=== PATIENT | female | born 1995 | race Caucasian/White ===

== ENCOUNTER 2019-11-02 09:03 | Observation (INO) | payer OTHER ==
[~2019-11-02] VITALS: Ht 180.3 cm; Wt 152.6 kg
[~2019-11-02 09:03] MED LIST: IBUP600 PO; Percocet 5-3251 EACH PO
[2019-11-02] MEDS ORDERED: IRON18 MG (09:25)
[2019-11-02 09:50] LABS: BASOPHILS ABSOLUTE AUTO 0.01 K/mm3 (0.00-0.23); BASOPHILS PERCENT AUTO 0 % (0-2); EOSINOPHILS ABSOLUTE AUTO 0.13 K/mm3 (0.00-0.68); EOSINOPHILS PERCENT AUTO 2 % (0-6); Hematocrit 20.9 % (33.0-51.0); IMMATURE GRAN ABSOLUTE AUTO 0.05 K/mm3 (0.00-0.10); IMMATURE GRAN PERCENT AUTO 1 % (0-1); LYMPHOCYTES ABSOLUTE AUTO 1.68 K/mm3 (0.84-5.20); LYMPHOCYTES PERCENT AUTO 26 % (21-46); MONOCYTES ABSOLUTE AUTO 0.45 K/mm3 (0.16-1.47); MONOCYTES PERCENT AUTO 7 % (4-13); Mean Corpuscular HGB 13.8 pg (26.0-34.0); Mean Corpuscular HGB Conc 22.5 g/dL (31.5-36.5); Mean Corpuscular Volume 61 fL (80-100); NEUTROPHILS ABSOLUTE AUTO 4.17 K/mm3 (1.96-9.15); NEUTROPHILS PERCENT AUTO 64 % (41-73); NRBC ABSOLUTE 0.05 K/mm3 (0.00-0.02); NRBC Auto 0.8 /100 WBC (0.0-0.2); Platelet Count 259 K/mm3 (150-400); RDW Coefficient Variation 24.5 % (11.7-14.2); Red Blood Cell Count 3.41 M/mm3 (3.80-5.20); White Blood Cell Count 6.49 K/mm3 (4.00-11.30)
[2019-11-02 10:09] LABS: Alanine Aminotransfer (ALT/SGP 14 U/L (12-78); Albumin, Blood 3.6 g/dL (3.4-5.0); Albumin/Globulin Ratio 0.9 (0.8-1.8); Alk Phos 65 U/L (50-136); Anion Gap 4 mmol/L (6-16); Aspartate Aminotrans (AST/SGOT 8 U/L (12-37); Bilirubin, Total 0.7 mg/dL (0.1-1.0); Blood Urea Nitrogen 12 mg/dL (8-24); Bun/Creatinine Ratio 17.3 (12.0-20.0); CO2, Blood 27 mmol/L (21-32); Calcium, Blood 8.7 mg/dL (8.5-10.1); Chloride, Blood 110 mmol/L (98-108); Creatinine, Blood 0.69 mg/dL (0.40-1.00); Globulin, Blood 3.8 g/dL (2.2-4.0); Glomerular Filtration Rate >60 (60-); Glucose, Blood 99 mg/dL (70-99); Potassium, Blood 3.9 mmol/L (3.5-5.5); Sodium, Blood 141 mmol/L (136-145); Total Protein, Blood 7.4 g/dL (6.4-8.2)
[2019-11-02 10:16] LABS: Hemoglobin 4.7 g/dL (11.5-16.0)
--- NOTE | 2019-11-02 12:30 | NUR ---
Assumed Care Received report @ 12:10 from Humphrey RN-ED, patient arrived @ 12:25. Denies SOB and dizziness. Does not appear to be dyspneic on exertion or diaphoretic. Independent with ambulation, asymptomatic. Denies pain. 2nd PRBC infusing and mom at bedside upon arrival. A/Ox4. Able to answer questions and use call light appropriately. VSS. No other needs, will continue to monitor.
[2019-11-02] MEDS ORDERED: VITAMIN D33000 UNIT PO (14:30)
--- NOTE | 2019-11-02 19:26 | NUR ---
Shift Summary Patient received a total of 4 PRBC (1 in ER and 3 on MED). Tolerated well, lung sounds are clear. ER blood administration record for 2nd PRBC in chart. Carlton informed of 4 units PRBC infused, verbal order for stat H&H. Independent. Denies SOB, dizziness, diaphoresis. Hand off report to receiving night LISA Galicia.
[2019-11-02 19:47] LABS: Hemoglobin 7.3 g/dL (11.5-16.0)
[2019-11-03 05:37] LABS: BASOPHILS ABSOLUTE AUTO 0.02 K/mm3 (0.00-0.23); BASOPHILS PERCENT AUTO 0 % (0-2); EOSINOPHILS ABSOLUTE AUTO 0.18 K/mm3 (0.00-0.68); EOSINOPHILS PERCENT AUTO 3 % (0-6); Hematocrit 25.4 % (33.0-51.0); Hemoglobin 6.8 g/dL (11.5-16.0); IMMATURE GRAN ABSOLUTE AUTO 0.06 K/mm3 (0.00-0.10); IMMATURE GRAN PERCENT AUTO 1 % (0-1); LYMPHOCYTES ABSOLUTE AUTO 2.23 K/mm3 (0.84-5.20); LYMPHOCYTES PERCENT AUTO 31 % (21-46); MONOCYTES ABSOLUTE AUTO 0.45 K/mm3 (0.16-1.47); MONOCYTES PERCENT AUTO 6 % (4-13); Mean Corpuscular HGB Conc 26.8 g/dL (31.5-36.5); NEUTROPHILS ABSOLUTE AUTO 4.25 K/mm3 (1.96-9.15); NEUTROPHILS PERCENT AUTO 59 % (41-73); NRBC ABSOLUTE 0.06 K/mm3 (0.00-0.02); NRBC Auto 0.8 /100 WBC (0.0-0.2); Platelet Count 244 K/mm3 (150-400); RDW Coefficient Variation 29.6 % (11.7-14.2); RDW Standard Deviation 69.7 fL (35.1-46.3); Red Blood Cell Count 3.78 M/mm3 (3.80-5.20); White Blood Cell Count 7.19 K/mm3 (4.00-11.30)
[2019-11-03 05:42] LABS: Mean Corpuscular Volume 67 fL (80-100)
[2019-11-03 05:50] LABS: Anion Gap 4 mmol/L (6-16); Blood Urea Nitrogen 12 mg/dL (8-24); Bun/Creatinine Ratio 16.4 (12.0-20.0); CO2, Blood 27 mmol/L (21-32); Calcium, Blood 8.3 mg/dL (8.5-10.1); Chloride, Blood 111 mmol/L (98-108); Creatinine, Blood 0.73 mg/dL (0.40-1.00); Glomerular Filtration Rate >60 (60-); Glucose, Blood 86 mg/dL (70-99); Potassium, Blood 3.9 mmol/L (3.5-5.5); Sodium, Blood 142 mmol/L (136-145)
--- NOTE | 2019-11-03 06:22 | NUR ---
7521 DR HAJI CALLED AND INFORMED OF PT HGB (6.8). PROVIDER ORDERED H/H TO BE DRAWN AGAIN AT NOON.
--- NOTE | 2019-11-03 18:08 | NUR ---
SHIFT SUMMARY. A&OX4, INDEPENDENT IN ROOM, PLEASANT AND COOPERATIVE WITH CARE. PT DENIES PAIN, SOB, N/V. GOOD MEAL INTAKE. PT DENIES DARK STOOLS OR NAUSEA. PT DENIES MENSES. NO OBVIOUS S/SX OF BLEEDING. VSS. PT RECIEVING SECOND UNIT OR PRBC'S AT THIS TIME. PT IS TOLERATING WELL. IV LASIX GIVEN INBETWEEN UNITS PER ORDERS. FAMILY AT BEDSIDE MOST OF SHIFT. NO NEW CHANGES OR CONCERNS.
[2019-11-03 20:39] LABS: Hematocrit 30.7 % (33.0-51.0); Hemoglobin 8.4 g/dL (11.5-16.0); Mean Corpuscular HGB 19.1 pg (26.0-34.0); Mean Corpuscular HGB Conc 27.4 g/dL (31.5-36.5); Mean Corpuscular Volume 70 fL (80-100); NRBC ABSOLUTE 0.09 K/mm3 (0.00-0.02); NRBC Auto 0.8 /100 WBC (0.0-0.2); Platelet Count 265 K/mm3 (150-400); RDW Coefficient Variation 30.5 % (11.7-14.2); Red Blood Cell Count 4.39 M/mm3 (3.80-5.20); White Blood Cell Count 11.45 K/mm3 (4.00-11.30)
--- NOTE | 2019-11-04 04:41 | NUR ---
SUMMARY NO ISSUES NOTED. PT HAS BEEN UP LATE ON HER PHONE. PT IS EAGER TO GO HOME. PT CURRENTLY SLEEPING AND BREATHING EASY. CALL LIGHT IN REACH.
[2019-11-04 05:27] LABS: BASOPHILS ABSOLUTE AUTO 0.02 K/mm3 (0.00-0.23); BASOPHILS PERCENT AUTO 0 % (0-2); EOSINOPHILS ABSOLUTE AUTO 0.26 K/mm3 (0.00-0.68); EOSINOPHILS PERCENT AUTO 3 % (0-6); Hematocrit 30.9 % (33.0-51.0); Hemoglobin 8.5 g/dL (11.5-16.0); IMMATURE GRAN ABSOLUTE AUTO 0.06 K/mm3 (0.00-0.10); IMMATURE GRAN PERCENT AUTO 1 % (0-1); LYMPHOCYTES ABSOLUTE AUTO 2.57 K/mm3 (0.84-5.20); LYMPHOCYTES PERCENT AUTO 27 % (21-46); MONOCYTES ABSOLUTE AUTO 0.58 K/mm3 (0.16-1.47); MONOCYTES PERCENT AUTO 6 % (4-13); Mean Corpuscular HGB 19.2 pg (26.0-34.0); Mean Corpuscular HGB Conc 27.5 g/dL (31.5-36.5); Mean Corpuscular Volume 70 fL (80-100); NEUTROPHILS ABSOLUTE AUTO 5.91 K/mm3 (1.96-9.15); NEUTROPHILS PERCENT AUTO 63 % (41-73); NRBC ABSOLUTE 0.04 K/mm3 (0.00-0.02); NRBC Auto 0.4 /100 WBC (0.0-0.2); Platelet Count 262 K/mm3 (150-400); RDW Coefficient Variation 30.7 % (11.7-14.2); RDW Standard Deviation 74.4 fL (35.1-46.3); Red Blood Cell Count 4.43 M/mm3 (3.80-5.20)
[2019-11-04] MEDS ORDERED: FERSU300 PO (11:00)
[2019-11-04] MEDS ORDERED: FAMO20 PO (11:01)
[2019-11-04] MEDS ORDERED: HYDR10 PO (11:03)
[2019-11-04] MEDS ORDERED: ASCO500 PO (11:04)
--- NOTE | 2019-11-04 12:11 | NUR ---
1135 PT DISCHARGED HOME VIA PERSONAL VEHICLE ACCOMPANIED AND DRIVEN BY MOTHER. PT REFUSED ESCORT TO ENTRANCE AND SELF AMBULATED WITH MOTHER. IV REMOVED. D/C PAPERWORK REVIEWED WITH PT AND COPY PROVIDED. NEW RX FAXED TO [facility] PER PT REQUEST. NO S/SX OF BLEEDING THIS SHIFT. NO NEW CHANGES OR CONCERNS.
== END 2019-11-04 11:36 | disposition home or self-care (01) ==
LOC: ER 09:03 → MEDS 09:04 → ENPENDDIS 11-04 10:00 → MEDS 11-04 11:36
PROVIDERS: Emergency Medicine; Family Medicine; Nurse Practitioner Acute Care; ADMIT Internal Medicine
DX: D50.9 Iron deficiency anemia, unspecified (principal); I10 Essential (primary) hypertension; E66.01 Morbid (severe) obesity due to excess calories; N92.1 Excessive and frequent menstruation with irregular cycle; Z68.41 Body mass index [BMI] 40.0-44.9, adult; Z79.899 Other long term (current) drug therapy
CPT/HCPCS: 36415; 36430; 80048; 80053; 82947; 85014; 85018; 85025; 85027; 86850; 86900; 86901; 86923; 96374; 99284-25; A9270; G0378; J1940; J7030; P9016

== ENCOUNTER 2020-02-17 00:09 | Day surgery (SDC) | payer OTHER | END 2020-02-17 10:09 | disposition home or self-care (01) | LOC: ATC 00:09 | DX: D50.9 Iron deficiency anemia, unspecified (principal); N93.8 Other specified abnormal uterine and vaginal bleeding; E28.2 Polycystic ovarian syndrome ==

== ENCOUNTER 2020-02-24 01:00 | Day surgery (SDC) | payer OTHER ==
[~2020-02-24 01:00] MED LIST changes: +ASCO500 PO; +ETONOGESTREL-E1 EAC1 VAG; +FAMO20 PO; +FERSU300 PO; +HYDR10 PO; +IRON18 MG; +METFORMIN HCL500 M3 PO; +VITAMIN D33000 UNIT PO
== END 2020-02-24 09:05 | disposition home or self-care (01) ==
LOC: ATC 01:00
DX: D50.9 Iron deficiency anemia, unspecified (principal); N93.8 Other specified abnormal uterine and vaginal bleeding; E28.2 Polycystic ovarian syndrome
CPT/HCPCS: 96365; J2916

== ENCOUNTER 2020-03-02 09:39 | Day surgery (SDC) | payer OTHER | END 2020-03-02 11:11 | disposition home or self-care (01) | LOC: ATC 09:39 | DX: D50.9 Iron deficiency anemia, unspecified (principal); N93.8 Other specified abnormal uterine and vaginal bleeding; E28.2 Polycystic ovarian syndrome | CPT/HCPCS: 96365; J2916 ==

== ENCOUNTER 2020-06-25 15:17 | Inpatient (IN) | payer OTHER, SELFPAY ==
[~2020-06-25] VITALS: Ht 180.3 cm; Wt 177.4 kg
--- NOTE | 2020-06-28 07:05 | NUR ---
History, Chart, Medications and Allergies reviewed before start of procedure. Lungs clear T/O to Auscultation. Patient confirms NPO status and agrees with scheduled surgery. Patient reports completing Chlorhexadine shower X2 prior to admission to hospital.
[2020-06-28 10:40] LABS: BASOPHILS ABSOLUTE AUTO 0.02 K/mm3 (0.00-0.23); BASOPHILS PERCENT AUTO 0 % (0-2); EOSINOPHILS ABSOLUTE AUTO 0.06 K/mm3 (0.00-0.68); EOSINOPHILS PERCENT AUTO 1 % (0-6); Hemoglobin 9.7 g/dL (11.5-16.0); IMMATURE GRAN ABSOLUTE AUTO 0.06 K/mm3 (0.00-0.10); IMMATURE GRAN PERCENT AUTO 1 % (0-1); LYMPHOCYTES ABSOLUTE AUTO 1.04 K/mm3 (0.84-5.20); LYMPHOCYTES PERCENT AUTO 9 % (21-46); MONOCYTES ABSOLUTE AUTO 0.15 K/mm3 (0.16-1.47); MONOCYTES PERCENT AUTO 1 % (4-13); Mean Corpuscular HGB 19.6 pg (26.0-34.0); Mean Corpuscular HGB Conc 28.5 g/dL (31.5-36.5); Mean Corpuscular Volume 69 fL (80-100); NEUTROPHILS ABSOLUTE AUTO 10.76 K/mm3 (1.96-9.15); NEUTROPHILS PERCENT AUTO 89 % (41-73); Platelet Count 278 K/mm3 (150-400); RDW Coefficient Variation 18.1 % (11.7-14.2); RDW Standard Deviation 43.2 fL (35.1-46.3); Red Blood Cell Count 4.94 M/mm3 (3.80-5.20); White Blood Cell Count 12.09 K/mm3 (4.00-11.30)
[2020-06-28 10:41] LABS: Mean Platelet Volume 11.3 fL (9.1-12.4)
[2020-06-29 05:31] LABS: BASOPHILS ABSOLUTE AUTO 0.02 K/mm3 (0.00-0.23); BASOPHILS PERCENT AUTO 0 % (0-2); EOSINOPHILS ABSOLUTE AUTO 0.01 K/mm3 (0.00-0.68); EOSINOPHILS PERCENT AUTO 0 % (0-6); Hematocrit 31.7 % (33.0-51.0); Hemoglobin 9.1 g/dL (11.5-16.0); IMMATURE GRAN ABSOLUTE AUTO 0.05 K/mm3 (0.00-0.10); IMMATURE GRAN PERCENT AUTO 0 % (0-1); LYMPHOCYTES ABSOLUTE AUTO 2.06 K/mm3 (0.84-5.20); LYMPHOCYTES PERCENT AUTO 17 % (21-46); MONOCYTES ABSOLUTE AUTO 0.77 K/mm3 (0.16-1.47); MONOCYTES PERCENT AUTO 6 % (4-13); Mean Corpuscular HGB 19.9 pg (26.0-34.0); Mean Corpuscular HGB Conc 28.7 g/dL (31.5-36.5); Mean Corpuscular Volume 69 fL (80-100); Mean Platelet Volume 10.8 fL (9.1-12.4); NEUTROPHILS ABSOLUTE AUTO 9.32 K/mm3 (1.96-9.15); NEUTROPHILS PERCENT AUTO 76 % (41-73); Platelet Count 326 K/mm3 (150-400); RDW Coefficient Variation 18.5 % (11.7-14.2); RDW Standard Deviation 45.3 fL (35.1-46.3); Red Blood Cell Count 4.57 M/mm3 (3.80-5.20); White Blood Cell Count 12.23 K/mm3 (4.00-11.30)
--- NOTE | 2020-06-29 05:57 | NUR ---
SHIFT SUMMARY LYING IN SEMI FOWLERS WITH EYES CLOSED, HAS RESTED WELL ALL SHIFT. AAO X3, MOON, FOLLOWS ALL COMMANDS. LAP SITES X3 TO ABDOMEN ARE C/D/I. PAIN MANAGED WITH PERCOCET PER MD ORDERS. LEFT HAND SL PIV IS PATENT, FLUSHING WITH EASE BRIGHT CATH REMOVED WITH TIP INTACT, TOLERATED WELL. NO SIGNIFICANT CHANGES NOTED THIS SHIFT. DENIES PAIN, DISCOMFORTR, OR FURTHER NEEDS AT THIS TIME. SAFETY MEASURES IN PLACE. WILL CONTINUE TO MONITOR AND GIVE HAND OFF TO ONCOMING SHIFT USING SBAR DURING BEDSIDE REPORT.
--- NOTE | 2020-06-29 18:03 | NUR ---
SHIFT SUMMARY PT RESTING QUIETLY AT START OF SHIFT. POST-OP DAY 1 WITH 3 LAP SITES OPEN TO AIR. PER SHIFT REPORT, PT HAD ONLY BEEN MEDICATED ONCE AFTER SURGERY. PT CONTINUED TO DENY NEEDING PAIN MEDICATION THRU OUT THE DAY. PT UP TO BTHRM INDEPENDENTLY, VOIDING WELL. PT EATING AND DRINKING WITH NO C/O. PT WAITING FOR DR CELESTE TO COME IN AND D/C TO HOME. PT WAITED ALL DAY. DR CELESTE'S ANS NOTIFIED. DR BARBER BUNCH BREAKER. INSTRUCTED BY DR BARBER TO CALL DR CELESTE'S CELL FOR D/C ORDERS. ATTEMPTED FOR 1 HR WITH NO ANS AND UNABLE TO LEAVE MESSAGE FOR CALL BACK. DR BARBER NOTIFIED AGAIN AND RETURNED CALL. D/C ORDERS PLACED. IV SITE TO [facility] D/C'D WNL'S. D/C INSTRUCTIONS DISCUSSED WITH PT; VERBALIZED UNDERSTANDING. PT REPORTED THAT SHE ALREADY HAD A F/U APPOINTMENT SCHEDULED. W/C OBTAINED AND PT ASSISTED OUT TO CAR WITH BESIDE HER.
== END 2020-06-29 17:00 | disposition home or self-care (01) | DRG 742 ==
LOC: SURS 06-28 06:31 → PRE IP 06-28 07:30 → SURS 06-28 10:30
PROVIDERS: ADMIT Obstetrics & Gynecology
PROC: 0UT60ZZ Resection of Left Fallopian Tube, Open Approach (ICD-10-PCS; principal; 2020-06-28 07:30)
PROC: 0UT10ZZ Resection of Left Ovary, Open Approach (ICD-10-PCS; 2020-06-28 07:30)
DX: N83.202 Unspecified ovarian cyst, left side (principal); Z68.43 Body mass index [BMI] 50.0-59.9, adult; I10 Essential (primary) hypertension; N92.1 Excessive and frequent menstruation with irregular cycle; D64.9 Anemia, unspecified; E78.5 Hyperlipidemia, unspecified; E66.01 Morbid (severe) obesity due to excess calories
CPT/HCPCS: 36415; 85025; 88108; 88305; A9270; J1100; J1885; J2250; J2370; J2405; J2704; J3010; J7120

== ENCOUNTER 2020-09-07 00:24 | Day surgery (SDC) | payer OTHER ==
[2020-09-07] MEDS ORDERED: [UNRECOGNIZED DRUG - REMARK] PO (14:14)
== END 2020-09-07 15:23 | disposition home or self-care (01) ==
LOC: ATC 00:24
DX: D50.9 Iron deficiency anemia, unspecified (principal); N93.8 Other specified abnormal uterine and vaginal bleeding; E28.2 Polycystic ovarian syndrome
CPT/HCPCS: J2916

== ENCOUNTER 2020-09-21 01:51 | Day surgery (SDC) | payer OTHER ==
[~2020-09-21 01:51] MED LIST changes: +[UNRECOGNIZED DRUG - REMARK] PO
--- NOTE | 2020-09-21 14:19 | NUR ---
IV START: REGGIE GONZALEZ ATTEMPTED 2X IV
== END 2020-09-21 15:17 | disposition home or self-care (01) ==
LOC: ATC 01:51
DX: D50.9 Iron deficiency anemia, unspecified (principal); N93.8 Other specified abnormal uterine and vaginal bleeding; E28.2 Polycystic ovarian syndrome
CPT/HCPCS: 96365; J2916

== ENCOUNTER 2021-03-29 04:11 | Day surgery (SDC) | payer OTHER | END 2021-03-29 14:50 | disposition home or self-care (01) | LOC: ATC 04:11 | DX: D50.9 Iron deficiency anemia, unspecified (principal) | CPT/HCPCS: 96365; J2916 ==

== ENCOUNTER 2021-04-05 03:04 | Day surgery (SDC) | payer OTHER | END 2021-04-05 14:47 | disposition home or self-care (01) | LOC: ATC 03:04 | DX: D50.9 Iron deficiency anemia, unspecified (principal) | CPT/HCPCS: J2916 ==

== ENCOUNTER 2021-07-17 01:36 | Day surgery (SDC) | payer OTHER | END 2021-07-17 15:26 | disposition home or self-care (01) | LOC: ATC 01:36 | DX: D50.9 Iron deficiency anemia, unspecified (principal); E28.2 Polycystic ovarian syndrome; N93.8 Other specified abnormal uterine and vaginal bleeding | CPT/HCPCS: J2916 ==

== ENCOUNTER 2021-07-31 01:17 | Day surgery (SDC) | payer OTHER | END 2021-07-31 15:22 | disposition home or self-care (01) | LOC: ATC 01:17 | DX: D50.9 Iron deficiency anemia, unspecified (principal); N93.8 Other specified abnormal uterine and vaginal bleeding; E28.2 Polycystic ovarian syndrome | CPT/HCPCS: 96365; J2916 ==

== ENCOUNTER 2021-08-13 21:05 | Emergency (ER) | payer OTHER ==
[~2021-08-13] VITALS: Ht 180.3 cm; Wt 145.2 kg
[2021-08-13] MEDS ORDERED: AMOCLA875 PO (22:57)
== END 2021-08-13 23:14 | disposition home or self-care (01) ==
LOC: ER 21:05
DX: S62.634A Displaced fracture of distal phalanx of right ring finger, initial encounter for closed fracture (principal); S51.851A Open bite of right forearm, initial encounter; Z23 Encounter for immunization; W54.0XXA Bitten by dog, initial encounter
CPT/HCPCS: 12001; 29130; 73110; 73130; 90471; 90714; 99283-25; A9270

== ENCOUNTER 2021-10-30 03:48 | Day surgery (SDC) | payer OTHER ==
[~2021-10-30 03:48] MED LIST changes: +AMOCLA875 PO
== END 2021-10-30 16:06 | disposition home or self-care (01) ==
LOC: ATC 03:48
DX: D50.9 Iron deficiency anemia, unspecified (principal); N93.8 Other specified abnormal uterine and vaginal bleeding; E28.2 Polycystic ovarian syndrome
CPT/HCPCS: 96365; J2916

== ENCOUNTER 2021-11-13 01:16 | Day surgery (SDC) | payer OTHER | END 2021-11-13 16:15 | disposition home or self-care (01) | LOC: ATC 01:16 | DX: D50.9 Iron deficiency anemia, unspecified (principal) | CPT/HCPCS: 96365; J2916 ==

== ENCOUNTER → 2021-11-13 | Outpatient (CLI) | payer OTHER | END | disposition home or self-care (01) | LOC: LAB SHORT 09:25 → LAB 09:25 | PROVIDERS: Obstetrics & Gynecology | DX: Z12.4 Encounter for screening for malignant neoplasm of cervix (principal) | CPT/HCPCS: G0123 ==

== ENCOUNTER 2022-11-21 01:46 | Day surgery (SDC) | payer OTHER ==
[~2022-11-21 01:46] MED LIST changes: +IRON18 MG PO
[2022-11-21 14:20] VITALS: BP 153/93
== END 2022-11-21 22:43 | disposition home or self-care (01) ==
LOC: ATC 01:46
DX: D50.9 Iron deficiency anemia, unspecified (principal); N93.8 Other specified abnormal uterine and vaginal bleeding; E28.2 Polycystic ovarian syndrome
CPT/HCPCS: 96365; J2916

== ENCOUNTER 2023-02-19 14:28 | Day surgery (SDC) | payer OTHER ==
[2023-02-19 14:41] VITALS: BP 152/94
== END 2023-02-19 16:35 | disposition home or self-care (01) ==
LOC: ATC 14:28
DX: D50.9 Iron deficiency anemia, unspecified (principal); N93.8 Other specified abnormal uterine and vaginal bleeding; E28.2 Polycystic ovarian syndrome
CPT/HCPCS: 96365; J2916

== ENCOUNTER 2023-02-26 01:35 | Day surgery (SDC) | payer OTHER ==
[2023-02-26 14:20] VITALS: BP 129/86
== END 2023-02-26 15:25 | disposition home or self-care (01) ==
LOC: ATC 01:35
DX: D50.9 Iron deficiency anemia, unspecified (principal); N93.8 Other specified abnormal uterine and vaginal bleeding; E28.2 Polycystic ovarian syndrome
CPT/HCPCS: 96365; J2916

== ENCOUNTER 2023-06-15 02:42 | Day surgery (SDC) | payer OTHER ==
[2023-06-15 14:25] VITALS: BP 156/80
== END 2023-06-15 15:17 | disposition home or self-care (01) ==
LOC: ATC 02:42
DX: D50.9 Iron deficiency anemia, unspecified (principal)
CPT/HCPCS: 96365; J2916

== ENCOUNTER 2023-06-22 01:44 | Day surgery (SDC) | payer OTHER ==
[2023-06-22] MEDS ORDERED: Sod Ferric Gluc Complx/Sucrose 125 MG in NS 100 ML IV SCH (06:00)
[2023-06-22 14:34] VITALS: BP 160/81
== END 2023-06-22 15:31 | disposition home or self-care (01) ==
LOC: ATC 01:44
DX: D50.9 Iron deficiency anemia, unspecified (principal)
CPT/HCPCS: 96365; J2916

== ENCOUNTER 2023-06-29 00:27 | Day surgery (SDC) | payer OTHER ==
[2023-06-29] MEDS ORDERED: Sod Ferric Gluc Complx/Sucrose 125 MG in NS 100 ML IV SCH (07:00)
[2023-06-29 15:09] VITALS: BP 150/100
== END 2023-06-29 16:20 | disposition home or self-care (01) ==
LOC: ATC 00:27
DX: D50.9 Iron deficiency anemia, unspecified (principal)
CPT/HCPCS: 96365; J2916

== ENCOUNTER 2023-10-29 02:51 | Day surgery (SDC) | payer OTHER ==
[~2023-10-29 02:51] MED LIST changes: +Sod Ferric Gluc Complx/Sucrose 125 MG in NS 100 ML IV SCH
[2023-10-29 15:10] VITALS: BP 170/90
[2023-10-29 16:16] VITALS: BP 163/91
== END 2023-10-29 16:18 | disposition home or self-care (01) ==
LOC: ATC 02:51
DX: D50.9 Iron deficiency anemia, unspecified (principal); N93.8 Other specified abnormal uterine and vaginal bleeding; E28.2 Polycystic ovarian syndrome
CPT/HCPCS: 96365; J2916

== ENCOUNTER 2023-11-14 07:06 | Day surgery (SDC) | payer OTHER ==
[2023-11-14 09:10] VITALS: BP 132/100
== END 2023-11-14 10:15 | disposition home or self-care (01) ==
LOC: ATC 07:06
DX: D50.9 Iron deficiency anemia, unspecified (principal); N93.8 Other specified abnormal uterine and vaginal bleeding; E28.2 Polycystic ovarian syndrome
CPT/HCPCS: 96365; J2916

== ENCOUNTER 2024-02-26 03:00 | Day surgery (SDC) | payer OTHER ==
[2024-02-25 13:47] LABS: BASOPHILS ABSOLUTE AUTO 0.01 K/mm3 (0.00-0.23); BASOPHILS PERCENT AUTO 0 % (0-2); EOSINOPHILS ABSOLUTE AUTO 0.11 K/mm3 (0.00-0.68); EOSINOPHILS PERCENT AUTO 1 % (0-6); IMMATURE GRAN ABSOLUTE AUTO 0.27 K/mm3 (0.00-0.10); IMMATURE GRAN PERCENT AUTO 3 % (0-1); LYMPHOCYTES ABSOLUTE AUTO 2.04 K/mm3 (0.84-5.20); LYMPHOCYTES PERCENT AUTO 25 % (21-46); MONOCYTES ABSOLUTE AUTO 0.41 K/mm3 (0.16-1.47); MONOCYTES PERCENT AUTO 5 % (4-13); Mean Corpuscular HGB 15.7 pg (26.0-34.0); Mean Corpuscular HGB Conc 25.3 g/dL (31.5-36.5); Mean Corpuscular Volume 62 fL (80-100); NEUTROPHILS ABSOLUTE AUTO 5.31 K/mm3 (1.96-9.15); NEUTROPHILS PERCENT AUTO 65 % (41-73); NRBC ABSOLUTE 0.19 K/mm3 (0.00-0.02); NRBC Auto 2.3 /100 WBC (0.0-0.2); Platelet Count 230 K/mm3 (150-400); RDW Coefficient Variation 24.2 % (11.7-14.2); Red Blood Cell Count 2.49 M/mm3 (3.80-5.20); White Blood Cell Count 8.15 K/mm3 (4.00-11.30)
[2024-02-25 14:04] LABS: Hematocrit 15.4 % (33.0-51.0); Hemoglobin 3.9 g/dL (11.5-16.0)
[~2024-02-26 03:00] MED LIST changes: -Sod Ferric Gluc Complx/Sucrose 125 MG in NS 100 ML IV SCH
[2024-02-26] MEDS ORDERED: NS 250 ML IV SCH (06:50)
[2024-02-26 07:40] VITALS: BP 156/64
[2024-02-26 08:06] VITALS: BP 147/81
[2024-02-26 09:18] VITALS: BP 143/82
[2024-02-26 09:37] VITALS: BP 129/72
[2024-02-26 10:38] VITALS: BP 138/77
[2024-02-26 11:03] VITALS: BP 138/77
== END 2024-02-26 11:03 | disposition home or self-care (01) ==
LOC: ATC 03:00
PROVIDERS: Legal Medicine
DX: D50.9 Iron deficiency anemia, unspecified (principal); N93.8 Other specified abnormal uterine and vaginal bleeding; E28.2 Polycystic ovarian syndrome
CPT/HCPCS: 36415; 36430; 85025; 86850; 86900; 86901; 86923; J7050; P9016

== ENCOUNTER 2024-03-04 00:22 | Day surgery (SDC) | payer OTHER ==
[2024-03-04] MEDS ORDERED: Sod Ferric Gluc Complx/Sucrose 125 MG in NS 100 ML IV SCH (01:00)
[2024-03-04 15:15] VITALS: BP 165/82
== END 2024-03-04 16:22 | disposition home or self-care (01) ==
LOC: ATC 00:22
DX: D50.9 Iron deficiency anemia, unspecified (principal); N93.8 Other specified abnormal uterine and vaginal bleeding; E28.2 Polycystic ovarian syndrome
CPT/HCPCS: 96365; J2916

== ENCOUNTER 2024-03-07 02:06 | Day surgery (SDC) | payer OTHER ==
[~2024-03-07 02:06] MED LIST changes: +Sod Ferric Gluc Complx/Sucrose 125 MG in NS 100 ML IV SCH
[2024-03-07 16:05] VITALS: BP 153/71
== END 2024-03-07 17:17 | disposition home or self-care (01) ==
LOC: ATC 02:06
DX: D50.9 Iron deficiency anemia, unspecified (principal)
CPT/HCPCS: 96365; J2916

== ENCOUNTER 2024-03-08 04:35 | Day surgery (SDC) | payer OTHER ==
[2024-03-08 16:06] VITALS: BP 157/70
== END 2024-03-08 17:15 | disposition home or self-care (01) ==
LOC: ATC 04:35
DX: D50.9 Iron deficiency anemia, unspecified (principal); N93.8 Other specified abnormal uterine and vaginal bleeding; E28.2 Polycystic ovarian syndrome
CPT/HCPCS: 96365; J2916

== ENCOUNTER 2024-10-20 14:04 | Inpatient (IN) | payer OTHER ==
[~2024-10-20] VITALS: Ht 180.3 cm; Wt 179.4 kg
[~2024-10-20 14:04] MED LIST changes: -Sod Ferric Gluc Complx/Sucrose 125 MG in NS 100 ML IV SCH
[2024-10-20 14:55] LABS: BASOPHILS ABSOLUTE AUTO 0.02 K/mm3 (0.00-0.23); BASOPHILS PERCENT AUTO 0 % (0-2); EOSINOPHILS ABSOLUTE AUTO 0.17 K/mm3 (0.00-0.68); EOSINOPHILS PERCENT AUTO 2 % (0-6); IMMATURE GRAN ABSOLUTE AUTO 0.18 K/mm3 (0.00-0.10); IMMATURE GRAN PERCENT AUTO 2 % (0-1); LYMPHOCYTES PERCENT AUTO 18 % (21-46); MONOCYTES ABSOLUTE AUTO 0.54 K/mm3 (0.16-1.47); MONOCYTES PERCENT AUTO 7 % (4-13); Mean Corpuscular HGB 16.5 pg (26.0-34.0); Mean Corpuscular HGB Conc 26.3 g/dL (31.5-36.5); Mean Corpuscular Volume 63 fL (80-100); NEUTROPHILS ABSOLUTE AUTO 5.78 K/mm3 (1.96-9.15); NEUTROPHILS PERCENT AUTO 71 % (41-73); NRBC ABSOLUTE 0.13 K/mm3 (0.00-0.02); NRBC Auto 1.6 /100 WBC (0.0-0.2); Platelet Count 270 K/mm3 (150-400); RDW Standard Deviation 43.1 fL (35.1-46.3); Red Blood Cell Count 3.03 M/mm3 (3.80-5.20); White Blood Cell Count 8.19 K/mm3 (4.00-11.30)
[2024-10-20 15:11] LABS: Bun/Creatinine Ratio 15.7 (12.0-20.0); Calcium, Blood 8.5 mg/dL (8.5-10.1); Creatinine, Blood 0.64 mg/dL (0.40-1.00)
[2024-10-20] MEDS ORDERED: Iron Dextran 50 MG / ML 2ML Vial IV ONE (19:30)
[2024-10-20] MEDS ORDERED: Iron Dextran 975 MG in NS 250 ML IV ONE (20:30)
[2024-10-20 20:35] LABS: Hematocrit 16.9 % (33.0-51.0)
[2024-10-20 20:37] LABS: Hemoglobin 4.3 g/dL (11.5-16.0)
[2024-10-20] MEDS ORDERED: NS 1,000 ML IV SCH (20:40)
[2024-10-20 22:39] VITALS: BP 195/103
[2024-10-20] MEDS ORDERED: NS 250 ML IV PRN (22:55)
[2024-10-21] VITALS (17 sets, daily range): BP systolic 144–194; BP diastolic 77–102
--- NOTE | 2024-10-21 04:23 | NUR ---
Shift Summary [facility] Received report from JESSICA Ruelas RN. AOx4, ambulatory. Continent. Had first of two units of PRBC completed in ER prior to arrival. Second PRBC and iron infused here. Denies pain, nausea, dizziness, syncopy, shortness of breath. Claims past hgb has been as low as 2 and baseline usually stays approx 8. Tele: SR 90s. Refused SCD's. RA.
[2024-10-21 05:10] LABS: BASOPHILS ABSOLUTE AUTO 0.02 K/mm3 (0.00-0.23); BASOPHILS PERCENT AUTO 0 % (0-2); EOSINOPHILS ABSOLUTE AUTO 0.17 K/mm3 (0.00-0.68); EOSINOPHILS PERCENT AUTO 2 % (0-6); Hematocrit 20.9 % (33.0-51.0); IMMATURE GRAN PERCENT AUTO 2 % (0-1); LYMPHOCYTES ABSOLUTE AUTO 2.16 K/mm3 (0.84-5.20); LYMPHOCYTES PERCENT AUTO 24 % (21-46); MONOCYTES ABSOLUTE AUTO 0.57 K/mm3 (0.16-1.47); MONOCYTES PERCENT AUTO 6 % (4-13); Mean Corpuscular HGB 18.6 pg (26.0-34.0); Mean Corpuscular HGB Conc 28.2 g/dL (31.5-36.5); Mean Corpuscular Volume 66 fL (80-100); NEUTROPHILS ABSOLUTE AUTO 5.88 K/mm3 (1.96-9.15); NEUTROPHILS PERCENT AUTO 65 % (41-73); NRBC ABSOLUTE 0.13 K/mm3 (0.00-0.02); NRBC Auto 1.4 /100 WBC (0.0-0.2); Platelet Count 261 K/mm3 (150-400); RDW Coefficient Variation 23.9 % (11.7-14.2); RDW Standard Deviation 54.4 fL (35.1-46.3); Red Blood Cell Count 3.17 M/mm3 (3.80-5.20)
[2024-10-21 05:16] LABS: Hemoglobin 5.9 g/dL (11.5-16.0); Mean Platelet Volume 11.1 fL (9.1-12.4)
[2024-10-21 05:22] LABS: Albumin, Blood 3.2 g/dL (3.4-5.0); Albumin/Globulin Ratio 0.9 (0.8-1.8); Bilirubin, Total 0.8 mg/dL (0.1-1.0); Bun/Creatinine Ratio 13.7 (12.0-20.0); Calcium, Blood 8.1 mg/dL (8.5-10.1); Creatinine, Blood 0.73 mg/dL (0.40-1.00); Globulin, Blood 3.5 g/dL (2.2-4.0); Potassium, Blood 3.7 mmol/L (3.5-5.5); Total Protein, Blood 6.7 g/dL (6.4-8.2)
[2024-10-21] MEDS ORDERED: HydrALAZINE HCl 20 MG / ML 1ML Vial IV ONE (05:45)
--- NOTE | 2024-10-21 05:45 | NUR ---
Critical Hgb and HTN Called to discuss the above findings (BP 191/102, HR 80s) and a critical hgb of 5.9 up from 4.3. Baseline hgb per patient state is 8. Asymptomatic. Received T.O. to give apresoline 10mg IV x once. Confirmed correct order via read back method. Order placed.
[2024-10-21 08:29] LABS: Hematocrit 21.1 % (33.0-51.0)
[2024-10-21 08:33] LABS: Hemoglobin 5.9 g/dL (11.5-16.0)
[2024-10-21] MEDS ORDERED: NS 500 ML IV SCH (08:50)
--- NOTE | 2024-10-21 12:00 | NUR ---
NOTE PT A&OX4. PT ADMITTED DUE TO SEVERE ANEMIA. NIGHT RN REPORTED PT RECEIVED A UNIT OF BLOOD LAST NIGHT AND IN THE ER WHICH IS TOTAL OF 2. PT HGB IS 5.9 FROM [place]AMPLE AT 0800. CALLED DR. BALBUENA AND NOTIFIED OF CRITICAL LAB. BLOOD CONSENT SIGNED IN CHART. DR. BALBUENA ORDERED A UNIT OF BLOOD FOR PT. BLOOD VERIFIED WITH SECOND RN, ARABELLA RIVAS. LUNG SOUNDS CLEAR AND VSS PRE BLOOD TRANSFUSION. PT EDUCATED ON S/S OF TRANSFUSION REACTION. BLOOD TRANSFUSION STARTED AT 1139. PT IN BED, BED IN LOWEST POSITION, CALL LIGHT IN REACH. PT CALLS APPROPRIATE.
[2024-10-21] MEDS ORDERED: PAROEX473 ML UD (15:10)
[2024-10-21 15:49] LABS: Hematocrit 22.6 % (33.0-51.0); Hemoglobin 6.6 g/dL (11.5-16.0)
[2024-10-21 16:13] LABS: Percent Saturation 41.9 % (15.0-50.0)
[2024-10-21] MEDS ORDERED: ASCO500 PO (16:55)
--- NOTE | 2024-10-21 19:15 | NUR ---
DISCHARGE NOTE PT A&OX4. PT ADMITED DUE TO SEVERE ANEMIA. HBG WAS RECHECKED POST ONE UNIT OF PRBC. REPORTED 6.[address] BALBUENA, DR. BALBUENA ORDERED DISCHARGE. PT REPORTS "ASYMPTOMATIC ANEMIA, NO LIGHTHEADED DIZZINESS." IV AND TELE D/C. NO TELE REPORTS. WENT OVER DISCHARGE AND MEDS WITH PT. PT AT BEDSIDE FOR PART OF SHIFT. PT REPORTED NO PAIN. PT ESCORTED BY LOCAL COMPANY TANKER DRIVER TO PT ENTERANCE. PT LEFT WITH PERSONAL BELONGINGS.
== END 2024-10-21 17:18 | disposition home or self-care (01) | DRG 812 ==
LOC: ER 14:04 → MEDS 14:05
PROVIDERS: Internal Medicine; Student in an Organized Health Care Education/Training Program; ADMIT Family Medicine
PROC: 30233N1 Transfusion of Nonautologous Red Blood Cells into Peripheral Vein, Percutaneous Approach (ICD-10-PCS; principal; 2024-10-20)
DX: D62 Acute posthemorrhagic anemia (principal); E28.2 Polycystic ovarian syndrome; E61.1 Iron deficiency; N92.0 Excessive and frequent menstruation with regular cycle
CPT/HCPCS: 36415; 36430; 80048; 80053; 82728; 83540; 83550; 83880; 85014; 85018; 85025; 86850; 86870; 86900; 86901; 86902; 86905; 86922; 93005; 93010; 96365; 96366; 96374; 96375; 99285-25; G0378; J0360; J1750; J7030; J7050; P9016

== ENCOUNTER → 2025-01-11 | Outpatient (CLI) | payer OTHER ==
[~2025-01-11] MED LIST changes: +PAROEX473 ML UD
[2025-01-11 19:25] LABS: BASOPHILS ABSOLUTE AUTO 0.01 K/mm3 (0.00-0.23); BASOPHILS PERCENT AUTO 0 % (0-2); EOSINOPHILS ABSOLUTE AUTO 0.15 K/mm3 (0.00-0.68); EOSINOPHILS PERCENT AUTO 3 % (0-6); Hematocrit 27.4 % (33.0-51.0); Hemoglobin 7.3 g/dL (11.5-16.0); IMMATURE GRAN ABSOLUTE AUTO 0.01 K/mm3 (0.00-0.10); IMMATURE GRAN PERCENT AUTO 0 % (0-1); LYMPHOCYTES ABSOLUTE AUTO 1.35 K/mm3 (0.84-5.20); LYMPHOCYTES PERCENT AUTO 23 % (21-46); MONOCYTES ABSOLUTE AUTO 0.38 K/mm3 (0.16-1.47); MONOCYTES PERCENT AUTO 7 % (4-13); Mean Corpuscular HGB Conc 26.6 g/dL (31.5-36.5); Mean Corpuscular Volume 80 fL (80-100); NEUTROPHILS ABSOLUTE AUTO 3.87 K/mm3 (1.96-9.15); NEUTROPHILS PERCENT AUTO 67 % (41-73); NRBC ABSOLUTE 0.00 K/mm3 (0.00-0.02); NRBC Auto 0.0 /100 WBC (0.0-0.2); Platelet Count 209 K/mm3 (150-400); RDW Coefficient Variation 24.2 % (11.7-14.2); RDW Standard Deviation 69.5 fL (35.1-46.3)
[2025-01-11 21:17] LABS: Ferritin, Serum 25.0 ng/mL (8-252); Total Iron Binding Capacity 394.0 ug/dL (250-450)
== END | disposition home or self-care (01) ==
LOC: LAB SHORT 16:19 → LAB 16:19
PROVIDERS: Internal Medicine Hematology & Oncology
DX: E61.1 Iron deficiency (principal)
CPT/HCPCS: 82728; 83540; 83550; 85025

== ENCOUNTER → 2025-03-07 | Outpatient (CLI) | payer OTHER ==
[2025-03-07 16:39] LABS: BASOPHILS ABSOLUTE AUTO 0.01 K/mm3 (0.00-0.23); BASOPHILS PERCENT AUTO 0 % (0-2); EOSINOPHILS ABSOLUTE AUTO 0.13 K/mm3 (0.00-0.68); EOSINOPHILS PERCENT AUTO 2 % (0-6); Hematocrit 29.2 % (33.0-51.0); Hemoglobin 8.0 g/dL (11.5-16.0); IMMATURE GRAN ABSOLUTE AUTO 0.02 K/mm3 (0.00-0.10); IMMATURE GRAN PERCENT AUTO 0 % (0-1); LYMPHOCYTES ABSOLUTE AUTO 1.51 K/mm3 (0.84-5.20); LYMPHOCYTES PERCENT AUTO 26 % (21-46); MONOCYTES ABSOLUTE AUTO 0.34 K/mm3 (0.16-1.47); MONOCYTES PERCENT AUTO 6 % (4-13); Mean Corpuscular HGB Conc 27.4 g/dL (31.5-36.5); Mean Corpuscular Volume 74 fL (80-100); NEUTROPHILS ABSOLUTE AUTO 3.76 K/mm3 (1.96-9.15); NEUTROPHILS PERCENT AUTO 65 % (41-73); NRBC ABSOLUTE 0.00 K/mm3 (0.00-0.02); NRBC Auto 0.0 /100 WBC (0.0-0.2); Platelet Count 235 K/mm3 (150-400); RDW Coefficient Variation 24.2 % (11.7-14.2); RDW Standard Deviation 63.4 fL (35.1-46.3)
[2025-03-07 17:26] LABS: Ferritin, Serum 29.0 ng/mL (8-252); Total Iron Binding Capacity 393.0 ug/dL (250-450)
== END ==
LOC: LAB SHORT 15:37 → LAB 15:37
PROVIDERS: Internal Medicine Hematology & Oncology
DX: E61.1 Iron deficiency (principal)
CPT/HCPCS: 82728; 83540; 83550; 85025

== ENCOUNTER 2025-05-03 02:08 | Day surgery (SDC) | payer OTHER ==
[2025-05-03] MEDS ORDERED: NS 250 ML IV SCH (07:00)
[2025-05-03 13:49] VITALS: BP 161/78
[2025-05-03 14:06] VITALS: BP 144/76
[2025-05-03 15:11] VITALS: BP 147/59
[2025-05-03 15:33] VITALS: BP 120/68
[2025-05-03 15:55] VITALS: BP 131/68
[2025-05-03 17:22] VITALS: BP 138/73
== END 2025-05-03 17:24 | disposition home or self-care (01) ==
LOC: ATC 02:08 → EDSTATUS 05-02 09:45 → LAB FUT 05-02 09:45
DX: D50.0 Iron deficiency anemia secondary to blood loss (chronic) (principal); N92.0 Excessive and frequent menstruation with regular cycle
CPT/HCPCS: 36415; 36430; 86850; 86870; 86900; 86901; 86902; 86922; 99211; J7050; P9016